=== PATIENT | male | born 1955 | race Caucasian/White ===

== ENCOUNTER 2017-07-24 09:08 | Day surgery (SDC) | payer BC, OTHER ==
[~2017-07-24] VITALS: Ht 177.8 cm; Wt 77.7 kg
[2017-07-24] VITALS (14 sets, daily range): BP systolic 125–160; BP diastolic 65–80; PULSE 66–94; RESP 11–20; Ht 177.8 cm; Wt 77.7 kg
[2017-07-24] MEDS ORDERED: WARF4TAB52 PO (09:43)
[2017-07-24] MEDS ORDERED: WARF4TAB PO (09:43)
[2017-07-24] MEDS ORDERED: ENOX80DI12 SC (09:44)
[2017-07-24] MEDS ORDERED: MIDAZOLAM 1 MG/ML 2 ML INJ ONE (11:14)
[2017-07-24] MEDS ORDERED: ROPIVACAINE 0.5 % 30 ML VIAL ONE (11:14)
[2017-07-24] MEDS ORDERED: FENTAnyl 50 MCG/ML VIAL ONE (11:14)
[2017-07-24] MEDS ORDERED: HYDROmorphONE (0.2 MG/ML) 10ML SYG IV PRN ×3 (11:30)
[2017-07-24] MEDS ORDERED: FENTAnyl 50 MCG/ML VIAL IV PRN ×3 (11:30)
[2017-07-24] MEDS ORDERED: DIPHENHYDRAMINE 50 MG INJ IV PRN (11:30)
[2017-07-24] MEDS ORDERED: MEPERIDINE 25 MG INJ IV PRN (11:30)
[2017-07-24] MEDS ORDERED: ONDANSETRON 4 MG INJ IV PRN ×2 (11:30→12:30)
[2017-07-24] MEDS ORDERED: PROCHLORPERAZINE 10 MG INJ IV PRN (11:30)
[2017-07-24 12:05] LABS: INR 0.87; PROTIME 11.9 Sec (11.9-14.9); PT RATIO 0.9
[2017-07-24] MEDS ORDERED: SOD CHLORIDE 0.9% 1,000 ML IV SCH (12:08)
--- NOTE | 2017-07-24 12:08 | HPN ---
Date/Time of Note Date/Time of Note DATE: 07/24/17 TIME: 12:08 Interval H&P Admission Note Pt. seen H&P reviewed: No system changes YONAS ARELLANO MD Jul 24, 2017 12:08
[2017-07-24] MEDS ORDERED: THROMBIN 5000 UNIT VIAL ONE (12:16)
[2017-07-24] MEDS ORDERED: HEPARIN 1000 UNITS/ML 10 ML INJ ONE (12:17)
[2017-07-24] MEDS ORDERED: CA CHLORIDE 10% 10 ML SYRINGE ONE (12:17)
[2017-07-24] MEDS ORDERED: POVIDONE IODINE 10% 28.4 GM OINT ONE (12:17)
[2017-07-24] MEDS ORDERED: POLYMYXIN/BACITRACIN 1L IRRIG ONE (12:18)
[2017-07-24] MEDS ORDERED: OXYCODONE/ACETAMINOPHEN (5/325) TAB PO PRN ×3 (12:30→16:00)
[2017-07-24] MEDS ORDERED: morphine 2 MG INJ IV PRN (12:30)
[2017-07-24] MEDS ORDERED: LIDOCAINE 2% (SDV) 5 ML INJ ONE (12:35)
[2017-07-24] MEDS ORDERED: ROCURONIUM 50 MG INJ ONE ×2 (12:35→13:41)
[2017-07-24] MEDS ORDERED: SUCCINYLCHOLINE CHLORIDE 100 MG/5 ML SYG IV ONE (12:35)
[2017-07-24] MEDS ORDERED: PROPOFOL 20 ML ONE (12:35)
[2017-07-24] MEDS ORDERED: EPHEDrine SULFATE 50 MG/5 ML SYG ONE (12:54)
[2017-07-24] MEDS ORDERED: ONDANSETRON 4 MG INJ ONE (12:55)
[2017-07-24] MEDS ORDERED: FAMOTIDINE 20 MG INJ ONE (12:55)
[2017-07-24] MEDS ORDERED: DEXAMETHASONE 4 MG/ML 1 ML INJ ONE (12:55)
[2017-07-24] MEDS: ROPIVACAINE 0.5 % 30 ML VIAL ONE ×2 (14:25→15:30)
[2017-07-24] MEDS ORDERED: HYDROmorphONE 2 MG/ML SYG ONE (14:57)
[2017-07-24] MEDS ORDERED: CEFAZOLIN 1 GM INJ ONE ×3 (15:44)
--- NOTE | 2017-07-24 15:55 | OPPN ---
Date/Time of Note Date/Time of Note DATE: 07/24/17 TIME: 15:52 Operative Report Preoperative Diagnosis R talar dome osteochondral lesion Postoperative Diagnosis Same, measuring 12x6 cm Operation/Procedure Performed R ankle arthroscopy, excision talar dome osteochondral lesion, extensive debridement, microfracture, harvest and placement of bone marrow aspirate ( iliac crest), placement of micronized cartilage Surgeon see signature line legal support assistant Lupis Anesthesia: general Estimated blood loss: 0 - 10 ml's Transfusion Required none Specimen none Grafts/Implants none Complications none YONAS ARELLANO MD Jul 24, 2017 15:55
[2017-07-24] MEDS ORDERED: LABETALOL HCL 20MG INJ IV PRN (16:00)
[2017-07-24] MEDS ORDERED: hydrALAzine 20 MG INJ IV PRN (16:00)
--- NOTE | 2017-07-24 20:18 | OPR ---
DATE OF OPERATION: 07/24/2017 PREOPERATIVE DIAGNOSES: 1. Unstable osteochondral lesion, medial talar dome. 2. Synovitis, scarring and osteophytes, right ankle. POSTOPERATIVE DIAGNOSES: 1. Unstable osteochondral lesion, medial talar dome. 2. Synovitis, scarring and osteophytes, right ankle. OPERATION: Right iliac crest bone marrow aspiration. SURGEON: Yonas Mcdonald MD CINDER PITMAN: Howard Baugh ANESTHESIA: General. DESCRIPTION OF PROCEDURE: The patient taken to the operating room and placed in supine position. S atisfactory general anesthesia was administered, 2 grams of Ancef given intravenously. The right il iac crest was prepped and draped in the usual manner. A small incision was made. The bone marrow a spirate needle was impacted. Sixty mL of bone marrow aspirate was obtained in syringes coated with heparin. They were given to the [employer] sales representative to spin down into bone marrow aspirate jenni ntrate. The wound was then irrigated clear. Wounds were closed with 4-0 black nylon and compressio n dressing was applied. The patient was then prepared and repositioned for the next part of the jelani colleen. End of the procedure, the sponge and needle count were correct. Patient tolerated procedure well. Dictated By: YONAS DUEÑAS/LAUREN Conf#: [id number] DID#: [id number]
--- NOTE | 2017-07-24 20:51 | OPR ---
DATE OF OPERATION: 07/24/2017 PREOPERATIVE DIAGNOSES: 1. Unstable osteochondral lesion medial talar dome, right ankle. 2. Synovitis, adhesions and osteophytes, right ankle. POSTOPERATIVE DIAGNOSES: 1. Unstable osteochondral lesion medial talar dome, 12 x 6 mm. 2. Osteophytes, synovitis and scar tissue, right ankle. OPERATION PERFORMED: 1. Arthroscopy, right ankle, with soft tissue distraction. 2. Excision medial osteochondral lesion of talus. 3. Drilling and microfracture osteochondral lesion of talus. 4. Extensive debridement of the ankle. 5. Insertion of particulated juvenile cartilage on the osteochondral lesion site with fibrin glue. 6. Bone marrow aspirate concentrate to the ankle joint. 7. Short-leg splint. SURGEON: Yonas Mcdonald MD COMMERCIAL APPRAISER: Howard Baugh ANESTHESIA: General with a popliteal block. TOURNIQUET TIME: 105 minutes. DESCRIPTION OF PROCEDURE: The patient taken to the operating room and placed in supine position. S atisfactory popliteal block was given. Satisfactory general anesthesia administered, 2 grams of Anc ef had been given intravenously. The right thigh secured in the thigh moreland. The right leg was pr epped and draped in the usual manner. The superficial peroneal nerve was marked out. Tourniquet wa s inflated to 250 mmHg. Soft distraction was applied. Standard anteromedial, anterolateral and pos terior portals were used, using extreme caution to avoid injuring neurovascular structures. There w as synovitis and scarring in the medial gutter. There were osteophytes and scarring along the dista l tibia. A lot of synovitis and scarring in the lateral gutter. The anterior talofibular ligament was intact. Scarring anteriorly. There was a tram track along the anteromedial aspect of the talus . There was some mild chondromalacia diffusely throughout the ankle. The osteochondral lesion medi al talar dome was central medial. It was loose with a flap. The rest of the articular surface look ed smooth and glistening. There was a large hemorrhagic synovial nodule and a lot of synovitis post eriorly. The shaver was inserted and the medial gutter was debrided. The lateral gutter was debrid ed as was the anterior gutter. Soft tissue peeled off the distal tibia, and a bur was used to remov e bone along the distal tibia. The synovitis was removed posteriorly. Hemorrhagic synovial nodule removed posterolaterally with a suction basket. Our attention was then turned to the osteochondral lesion. Probe was placed on it. It was loose me dially. It had a large flap. The flap was elevated and then using a ring curette, it was detached circumferentially, leaving as much healthy bone and cartilage as possible. It was an uncontained le guera. When we were done with the stable edge, it measured approximately 12 x 6 mm. Multiple microf racture holes were placed in the lesion, and the Micro Vector was inserted. A small stab wound was made in the sinus tarsi and we drilled multiple 0.045 K-wire holes into the area. There was reasona ble bleeding obtained. The juvenile particulated cartilage was then prepared. All of the water was taken out of the cells. Cells were packed in the special cannula. Multiple Q-tip dissection was used to dry up the bed. Once it was as dry as possible, a thin layer of fibrin glue was placed over the osteochondral lesion . The juvenile cells were then inserted through a cannula and impacted with a Leggett. Excellent cov erage was obtained. Additional fibrin glue was placed over the area to seal it. We waited 5 minute s, then moved the ankle and everything felt and looked stable. The wounds were closed with 4-0 navin k nylon. After the wounds were all closed, the bone marrow aspirate concentrate was injected into t he ankle joint. The platelet-poor material was placed on the dressings. A saphenous nerve block wa s done with 0.5% ropivacaine. Compression was applied as well as a posterior splint in neutral posi tion. End of procedure sponge and needle count was correct. The patient tolerated the procedure we ll. HOT WOUND SPRING PRODUCTION SUPERVISOR ORTHOPEDIC SURGEON: During the procedure, an nurse assistant orthopedic surgeon was used at my request. The nurse assistant helped with distraction of the ankle, mobilization of the arthroscope. The nurse assistant also helped drill the lesion while I held the drill guide in place. Without a skilled ort hopedic surgeon assisting me, this could not have been done and this should be compensated appropria tely. Dictated By: YONAS DUEÑAS/LAUREN Conf#: [id number] DID#: [id number]
== END 2017-07-24 17:58 | disposition home or self-care (01) ==
LOC: SDS 09:08
PROVIDERS: ATTEND Orthopaedic Surgery
DX: M93.271 Osteochondritis dissecans, right ankle and joints of right foot (principal); M65.871 Other synovitis and tenosynovitis, right ankle and foot
CPT/HCPCS: 29892; 85610; 85730; C1713; J0690; J1100; J1170; J1644; J2250; J2405; J2795; J3010